=== PATIENT | female | born 1930 | race Caucasian/White ===

== ENCOUNTER 2016-09-21 14:50 | Inpatient (IN) | payer OTHER ==
[~2016-09-21] VITALS: Ht 167.6 cm; Wt 90.7 kg
[~2016-09-21 14:50] MED LIST: ACETAMINOPHEN325 MG NG; ACETAMINOPHEN500 M1 PO; ACIDOPHILUS LAC1 CAP PO; ANCEF/KEFZOL INJ1 GM IV; BACTRIM DS TABL1 TAB PO; BENADRYL50 MG PO; CALTRATE 600 M600 M1 PO; CARAFATE1 G PO; CIPRO500 MG PO; COLACE100 MG PO; COREG 3.1253.125 MG PO; DITROPAN X5 MG/BOTTL PO; DOCUSATE S50 MG/5 ML PO; DOXYCYCLINE HY100 M2 PO; DURAGESIC1 PATCH .7 TD; DURAGESIC1 PATCH .7 TRANSDERM; ELIQUIS2.5 MG PO; FERROUS SULFAT325 MG PO; FOLATE0.4 MG PO; GLIMEPIRIDE1 MG PO; HYDROCODONE-APA1 TAB PO; IPRAT-ALBUT 0.5-3 ML UPD; K-DUR20 MEQ PO; KEFLEX500 MG PO; LACTINEX C1 TAB.CHEW PO; LASIX20 MG PO; LASIX40 MG PO; LISINOPRIL10 MG PO; MERREM 1 GM/NS 11 G1 IV; MS CONTIN15 MG PO; NORCO 10/325 TA1 TA1 PO; OXYBUTYNIN CHLOR5 MG PO; OXYCODONE HCL5 MG PO; PROAIR HFA8.5 GM INH; PROTONIX40 MG PO; SALINE FLUSH10 ML IV; SENNA PLUS TA1 UDTAB PO; VITAMIN B-12100 MCG PO; VITAMIN D250000 UNIT PO; VITAMIN D50000 UNIT PO; VOLTAREN100 GM TOPICAL; ZOLOFT100 MG PO
--- NOTE | 2016-09-21 14:54 | NUR ---
PT NOW ADMITTED UNDER INPATIENT HOSPICE. PT RESTING QUIETLY AND DENIES ANY CURRENT NEEDS. CL IN REACH, FAMILY AT BEDSIDE. WILL CTM.
[2016-09-21 16:18] VITALS: BP 138/68
--- NOTE | 2016-09-21 16:30 | NUR ---
CAN NOT GIVE ORDERED TRANSDERM PATCH R/T PHARMACY NOT BRINGING IT UP YET. WILL APPLY ONCE ITS AVAILABLE.
--- NOTE | 2016-09-21 18:02 | NUR ---
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 INFUSING VIA R.UPPER ARM IV ACCESS @1MG/HR. PT HAS FAMILY IN ROOM VISITING. NO FURTHER NEEDS AT THIS TIME. CL IN REACH, BED IN LOWEST, SIDE RAILS X2. WILL CPOC.
[2016-09-21 22:01] VITALS: BP 185/83
--- NOTE | 2016-09-21 22:32 | NUR ---
PT ASSESSMENT COMPLETED @ THIS TIME PT CONFUSED AND LETHARGIC WITH RESPERATIONS SHORT AND SHALLOW WHEEZZING EXPITORY NOTED BILATERAL UPPER LOBES. PIV SALINE LOCKED TO LEFT AC AND PICC TO RIGHT UPPER ARM INFUSING NS AND MORPHINE ENAMEL SPRAYER 1MG/HR CONTINUOS PER HOSPICE ORDERS SCOPOLAMINE PATCH PLACED PEHIND LEFT EAR, O2 2LNC AT THIS TIME AND PT ON TELEMETRY READING 76 SR FAMILY IN ROOM AT BED SIDE, WILL MONITOR
[2016-09-22 01:10] VITALS: BP 154/89
[2016-09-22 08:00] VITALS: BP 76/35
--- NOTE | 2016-09-22 09:21 | NUR ---
Nutrition Note: Chart reviewed. Pt is now admitted to hospice/comfort care. Regular Mech Soft diet has been ordered. RD available if needed further.
[2016-09-22 12:00] VITALS: BP 140/60
[2016-09-22 16:00] VITALS: BP 147/86
--- NOTE | 2016-09-22 19:23 | NUR ---
RECEIVED REPORT, FAMILY AT BEDSIDE, R. MIDLINE PICC 1MG MORPHINE Q 1HR,NS-30,LAC-SL, MAHAN, BED IS LOW, SRX2
[2016-09-22 20:00] VITALS: BP 139/69
--- NOTE | 2016-09-22 22:11 | NUR ---
FAMILY REQUESTING ATIVAN
[2016-09-23] VITALS: BP 147/83
--- NOTE | 2016-09-23 00:24 | NUR ---
MANDREL MAKER AT BEDSIDE TO OBTAIN VITALS, CALL LIGHT IN REACH. WILL CONTINUE WITH PLAN OF CARE.
--- NOTE | 2016-09-23 00:43 | NUR ---
ASSISTED SANDER DONALDSON WITH BATH/ LINEN CHANGE
--- NOTE | 2016-09-23 07:07 | NUR ---
PT SITTING UP IN BED WITH FAMILY AT BEDSIDE. PT LOOKS COMFORTABLE IN NO S/S DISTRESS NOTED. WILL CONTINUE TO MONITOR.
[2016-09-23 08:00] VITALS: BP 143/48
--- NOTE | 2016-09-23 15:43 | NUR ---
SPOKE WITH [place] FROM [facility] PT ABDOMINAL BINDER WAS NEVER BROUGHT UP. THEY ARE SUPPOSED TO BE BRINGING IT UP.
--- NOTE | 2016-09-23 18:11 | NUR ---
bibi meraz [facility]. pt is not comfortable increasingly aggitated.
--- NOTE | 2016-09-23 18:20 | NUR ---
SPOKE WITH SCHUYLER RECINOS RN.
--- NOTE | 2016-09-23 19:33 | NUR ---
RECEIVED REPORT, DNR-HOSPICE, LAC- 1MG-MORPHINE CONT, FAMILY AT BEDSIDE,
[2016-09-23 22:35] VITALS: BP 134/63
--- NOTE | 2016-09-24 00:31 | NUR ---
FAMILY REQUESTING ATIVAN
--- NOTE | 2016-09-24 01:13 | NUR ---
PT RESTING SOUNDLY WITHOUT C/O OR DISTRESS NOTED. CALL LIGHT IS WITHIN REACH. NO NEEDS VOICED. WILL MONITOR.
[2016-09-24 03:26] VITALS: Ht 167.6 cm; Wt 90.7 kg
[2016-09-24 05:59] VITALS: BP 130/63
--- NOTE | 2016-09-24 06:45 | NUR ---
RECEIVED REPORT FROM JACK SPINNER NURSE, YFN MAYA. PT IN BED, NAD NOTED, CALL LIGHT IN REACH, FAMILY AT BEDSIDE. WILL CONTINUE TO MONITOR.
--- NOTE | 2016-09-24 07:59 | NUR ---
ADMINISTERED 1MG OF ATIVAN AND 40MG OF LASIX PER FAMILY REQUEST, ASSESSMENT DONE AT THIS TIME. NAD NOTED, CALL LIGHT IN REACH, FAMILY AT BEDSIDE, WILL CONTINUE TO MONITOR.
[2016-09-24 08:00] VITALS: BP 153/60
--- NOTE | 2016-09-24 09:10 | NUR ---
ADMINSITERED 1MG OF ATIVAN PER FAMILY REQUEST. NAD NOTED, CALL LIGHT IN REACH, FAMILY AT BEDSIDE, WILL CONTINUE TO MONITOR.
--- NOTE | 2016-09-24 11:10 | NUR ---
ADMINISTERED 2MG BOLUS OF MORPHINE, AND ATROPINE EYE DROPS PER FAMILY REQUEST.
--- NOTE | 2016-09-24 11:12 | NUR ---
1000- CALLED [facility], WAITING ON THEM TO CALL BACK. 1030- RECEIVED CALL BACK FROM [facility] AND SPOKE WITH JOSHUA RN. INFORMED HER THAT FAMILY IS REQUESTING THE ATIVAN TO BE INCREASE OR MORPHINE BECAUSE THE 1MG ATIVAN THAT PT IS RECEIVING Q1H IS NOT LASTING THE WHOLE HOUR. JOSHUA RN SPOKE WITH DR. WEEKS AND INFORMED ME TO PUT AND ORDER FOR 2MG BOLUS OF MORPHINE Q6PRN.
--- NOTE | 2016-09-24 13:45 | NUR ---
ADMINISTERED 1MG OF ATIVAN PER FAMILY REQUEST. DIRECTOR SALES AND MARKETING JUST FINISHED GIVEN PT A BED BATH. FAMILY DENY ANY OTHER NEEDS AT THIS TIME. NAD NOTED, CALL LIGHT IN REACH, WILL CONTINUE TO MONITOR.
--- NOTE | 2016-09-24 15:30 | NUR ---
CHARACTER ACTRESS INFUSING COMPLETE, PLACED NEW SYRINGE OF MORPHINE, IN CHARACTER ACTRESS. PT RESTING COMFORTABLY. FAMILY DENY ANY NEEDS AT THIS TIME. CALL LIGHT IN REACH, NAD NOTED, WILL CONTINUE TO MONITOR.
[2016-09-24 20:30] VITALS: BP 132/62
--- NOTE | 2016-09-24 21:14 | NUR ---
JAMARI MERRILL, HOSPICE NURSE THAT PT MORPHINE ORDER IN NOV. WAS INSTRUCTED TO RENEW ORDER UNDER DR WEEKS.
--- NOTE | 2016-09-24 23:27 | NUR ---
RESTING WITH EYES CLOSED. RR EVEN U/L. NO S/S OF DISTRESS OR DISCOMFORT. FAMILY MEMBER PRESENT IN ROOM.
[2016-09-25 09:00] VITALS: BP 114/55
--- NOTE | 2016-09-25 09:06 | NUR ---
PT SITTING UP IN BED IN NO S/S DISTRESS. FAMILY AT BEDSIDE SLEEPING WILL CONTINUE TO MONITOR.
--- NOTE | 2016-09-25 14:54 | NUR ---
PT HAS JUST . NO BREATH SOUNDS. NO HEART BEAT. NO PULSE. CALLING HOSPICE. FAMILY AT BEDSIDE.
--- NOTE | 2016-09-25 17:01 | NUR ---
DC PIV WITH CATHETER TIP INTACT. DC MAHAN CATHETER. PT CLEAN AND DRY. DC COOK HELPER PUMP AND WASTED WITH SYLVIA FOURNIER. FAMILY STILL AT BEDSIDE. WAITING ON HOME.
--- NOTE | 2016-09-25 17:13 | NUR ---
PT LEFT VIA [facility].
== END 2016-09-25 17:14 | DRG 951 ==
LOC: D.M2 14:50
PROVIDERS: ADMIT Legal Medicine
DX: Z51.5 Encounter for palliative care (principal)